=== PATIENT | male | born 1950 | race Caucasian/White ===

== ENCOUNTER → 2022-11-12 | Outpatient (CLI) | payer SELFPAY ==
--- NOTE | 2022-11-25 15:14 | US ---
EXAMINATION TYPE: US arterial LE single level DATE OF EXAM: 11/12/2022 1:41 PM CLINICAL INDICATION: Male, 72 years old with history of I73.9; Pt states abnormal circulation test at outside facility History of: Smoker: No Hypertension: No Diabetic: Yes Hyperlipidemia: Yes TIA/CVA: No Previous Vascular Surgery: No CAD: No WV: No Vascular Ulcers: No Claudication: No Gangrene: No Doppler Waveforms: Right: Multiphasic Left: Multiphasic Right Brachial Pressure: 129 Left Brachial Pressure: 134 Ankle-Brachial Indices: Right: 1.4 Left: 1.3 Toe Brachial Indices: Right: 0.5 Left: 0.5 IMPRESSION: 1. Low TBI suggestive of mild distal atherosclerotic disease bilaterally.
== END | disposition home or self-care (01) ==
LOC: RADUSWWP 13:11
PROVIDERS: ATTEND Family Medicine
DX: I73.9 Peripheral vascular disease, unspecified (principal); E11.9 Type 2 diabetes mellitus without complications; E78.5 Hyperlipidemia, unspecified
CPT/HCPCS: 93922